=== PATIENT | male | born 1990 | race African-American/Black ===

== ENCOUNTER 2022-03-20 08:36 | Emergency (ER) | payer SELFPAY ==
[~2022-03-20] VITALS: Ht 180.3 cm; Wt 70.5 kg
[2022-03-20 10:06] VITALS: TEMP 98
[2022-03-20 12:30] LABS: STREP SCREEN NEGATIVE
[2022-03-20] MEDS ORDERED: PROAIR HFA0.09 MG/AC IH (13:05)
[2022-03-20 13:15] VITALS: BP 162/94; PULSE 76
== END 2022-03-20 13:15 | disposition home or self-care (01) ==
LOC: COL.ER 08:36
PROVIDERS: Nurse Practitioner
DX: J02.9 Acute pharyngitis, unspecified (principal); F17.210 Nicotine dependence, cigarettes, uncomplicated